=== PATIENT | female | born 1990 | race Caucasian/White ===

== ENCOUNTER 2016-07-13 20:07 | Inpatient (IN) | payer BC ==
[~2016-07-13] VITALS: Ht 160 cm; Wt 66.9 kg
[~2016-07-13 20:07] MED LIST: BIRTH CONTROL PO
[2016-07-13 20:17] VITALS: BP 125/73
[2016-07-13] MEDS ORDERED: NS IV 1000 ML 1,000 ML IV ONE (20:30)
[2016-07-13] MEDS ORDERED: CATHETER FLUSH 10 ML SYR IV PRN (20:30)
[2016-07-13] MEDS ORDERED: MINERAL OIL CONCENTRATE 99.9% 15 ML UDC TOP PRN (20:30)
[2016-07-13] MEDS ORDERED: MISOPROSTOL 100 MCG (CYTOTEC) TAB PO ONE (20:30)
[2016-07-13 21:13] LABS: BASOPHILS % (AUTO) 0 % (0-10); EOSINOPHILS # (AUTO) 0.2 10^3/uL (0.0-0.3); EOSINOPHILS % (AUTO) 2 % (0-10); LYMPHOCYTES % (AUTO) 18 % (12-44); MEAN CORPUSCULAR HEMOGLOBIN 33 PG (25-34); MEAN CORPUSCULAR HGB CONC 35 G/DL (32-36); MEAN CORPUSCULAR VOLUME 94 FL (80-99); MEAN PLATELET VOLUME 11.2 FL (7.4-10.4); MONOCYTES # (AUTO) 0.9 X 10^3 (0.0-1.0); MONOCYTES % (AUTO) 8 % (0-12); NEUTROPHILS # (AUTO) 8.1 X 10^3 (1.8-7.8); NEUTROPHILS % (AUTO) 72 % (42-75); PLATELET COUNT 184 10^3/uL (130-400); RED BLOOD COUNT 3.56 10^6/uL (4.35-5.85); RED CELL DISTRIBUTION WIDTH 12.5 % (10.0-14.5); WHITE BLOOD COUNT 11.3 10^3/uL (4.3-11.0)
[2016-07-13 21:18] LABS: BILIRUBIN,URINE NEGATIVE (NEGATIVE); KETONES,URINE NEGATIVE (NEGATIVE); LEUKOCYTE ESTERASE ,URINE 3+ (NEGATIVE); NITRITE,URINE NEGATIVE (NEGATIVE); PH,URINE 7 (5-9); PROTEIN,URINE NEGATIVE (NEGATIVE); UROBILINOGEN,URINE NORMAL (NORMAL)
[2016-07-13 21:28] LABS: WBC,URINE 25-50 /HPF
[2016-07-13] MEDS ORDERED: PREN-37 PO (21:29)
[2016-07-13] MEDS ORDERED: FERR-84 PO (21:30)
[2016-07-13] MEDS: D5 LR IV SOLUTION 1,000 ML IV SCH (21:49)
[2016-07-14] VITALS (74 sets, daily range): BP systolic 96–142; BP diastolic 51–95
[2016-07-14] MEDS ORDERED: MISOPROSTOL 100 MCG (CYTOTEC) TAB PO SCH (00:30)
[2016-07-14] MEDS: D5 LR IV SOLUTION 1,000 ML IV SCH ×2 (05:26→13:23)
[2016-07-14] MEDS ORDERED: OXYTOCIN/NORMAL SALINE 500 ML IV SCH ×2 (05:52→19:20)
--- NOTE | 2016-07-14 08:36 | Progress Note-Standard ---
Standard Progress Note Progress Notes/Assess & Plan Progress/Assessment & Plan Patient had one dose of oral cytotec. She was then started on Pitocin at 0630. Doing well but requsting some pain medication or epidural. VS - Last 72 Hours, by Label 07/13/16 07/14/16 07/14/16 20:17 01:28 05:20 Temp 98.8 98.0 97.6 Pulse 62 57 55 Resp 18 18 18 B/P (MAP) 125/73 130/60 116/56 Laboratory Tests Test 07/13/16 20:40 Range/Units White Blood Count 11.3 H 4.3-11.0 10^3/uL Red Blood Count 3.56 L 4.35-5.85 10^6/uL Hemoglobin 11.8 11.5-16.0 G/DL Hematocrit 34 L 35-52 % Mean Corpuscular Volume 94 80-99 FL Mean Corpuscular Hemoglobin 33 25-34 PG Mean Corpuscular Hemoglobin Concent 35 32-36 G/DL Red Cell Distribution Width 12.5 10.0-14.5 % Platelet Count 184 130-400 10^3/uL Mean Platelet Volume 11.2 H 7.4-10.4 FL Neutrophils (%) (Auto) 72 42-75 % Lymphocytes (%) (Auto) 18 12-44 % Monocytes (%) (Auto) 8 0-12 % Eosinophils (%) (Auto) 2 0-10 % Basophils (%) (Auto) 0 0-10 % Neutrophils # (Auto) 8.1 H 1.8-7.8 X 10^3 Lymphocytes # (Auto) 2.0 1.0-4.0 X 10^3 Monocytes # (Auto) 0.9 0.0-1.0 X 10^3 Eosinophils # (Auto) 0.2 0.0-0.3 10^3/uL Basophils # (Auto) 0.0 0.0-0.1 10^3/uL Urine Color YELLOW Urine Clarity CLEAR Urine pH 7 5-9 Urine Specific [place] 1.010 L 1.016-1.022 Urine Protein NEGATIVE NEGATIVE Urine Glucose (UA) NEGATIVE NEGATIVE Urine Ketones NEGATIVE NEGATIVE Urine Nitrite NEGATIVE NEGATIVE Urine Bilirubin NEGATIVE NEGATIVE Urine Urobilinogen NORMAL NORMAL MG/DL Urine Leukocyte Esterase 3+ H NEGATIVE Urine RBC (Auto) 4+ H NEGATIVE Urine RBC 5-10 H /HPF Urine WBC 25-50 H /HPF Urine Squamous Epithelial Cells 5-10 /HPF Urine Crystals NONE /LPF Urine Bacteria FEW H /HPF Urine Casts NONE /LPF Urine Mucus NEGATIVE /LPF Urine Culture Indicated YES well being reassuring SVE 4/100/-2 AROM clear fluid Assessment: IUP at 40 2/7 weeks. AROM. Augmentation. Plan ERNST VORA DO July 14, 2016 08:36
[2016-07-14] MEDS ORDERED: SUFENTA 0.6MCG/ML BUPIVA 0.125 100 ML ONE (08:39)
[2016-07-14] MEDS ORDERED: fentaNYL INJECTION 100 MCG/2 ML AMP IVP PRN (08:45)
[2016-07-14] MEDS ORDERED: BUPIVACAINE 0.25% 30 ML (SENSORCAINE) VIAL ONE ×2 (08:53→18:19)
[2016-07-14] MEDS ORDERED: fentaNYL INJECTION 100 MCG/2 ML AMP ONE ×3 (08:53→18:52)
[2016-07-14] MEDS ORDERED: LIDOCAINE PF 2% 10 ML (XYLOCAINE) AMP ONE ×3 (08:53→19:06)
[2016-07-14] MEDS ORDERED: LACTATED RINGERS 1,000 ML IV ONE ×2 (09:42)
[2016-07-14] MEDS ORDERED: EPIDURAL (SUFENTA 0.6MCG/ML BUPIVA 0.125%) 100 ML BAG EPI PRN (09:45)
[2016-07-14] MEDS ORDERED: fentaNYL INJECTION 100 MCG/2 ML AMP INJ ONE (09:45)
[2016-07-14] MEDS ORDERED: NALOXONE 0.4 MG/ML 1 ML (NARCAN) VIAL IV PRN (09:45)
[2016-07-14] MEDS ORDERED: ONDANSETRON 4 MG/2 ML (SDV) Z0FRAN IV PRN (09:45)
[2016-07-14] MEDS ORDERED: LIDOCAINE/EPI 1%-1:200,000 (XYLOCAINE) 30 ML VIAL ONE (11:29)
[2016-07-14] MEDS ORDERED: TERBUTALINE INJ 1 MG/ML (BRETHINE) AMP ONE (17:58)
[2016-07-14] MEDS ORDERED: ceFAZolin 2 GM/50 ML NS 50 ML IV ONE (18:00)
[2016-07-14] MEDS ORDERED: CATHETER FLUSH 10 ML SYR IV PRN (18:00)
[2016-07-14] MEDS ORDERED: FAMOTIDINE 20MG/2ML IV (PEPCID) IV ONE (18:00)
[2016-07-14] MEDS ORDERED: METOCLOPRAMIDE INJ 10 MG/2 ML (REGLAN) IV ONE (18:00)
[2016-07-14] MEDS ORDERED: CITRIC ACID/SOB CIT (BICITRA) 30 ML UDC PO ONE (18:00)
[2016-07-14] MEDS ORDERED: ceFAZolin 1,000 MG (ANCEF) VIAL ONE (18:07)
[2016-07-14] MEDS ORDERED: NS (IVPB) 50 ML ONE (18:07)
--- NOTE | 2016-07-14 18:13 | History & Physical-OB ---
OB - Chief Complaint & HPI Date Date of Admission: Date of Admission: July 13, 2016 at 8:07 pm Chief Complaint/History OB-Reason for Admission/Chief: Induction of Labor Hx : 1 Hx Para: 0 Expected Date of Delivery: July 12, 2016 Gestational Age in Weeks: 40 Indication for induction: post dates Other reason for admission: This patient is a 26-year-old she is 40 weeks and 2 days gestation and a patient of my partner Dr. Friedman's who was admitted last evening for induction of labor due to postdates. She was given oral Cytotec overnight and started on Pitocin for augmentation this morning. AROM was performed and Pitocin was continued throughout the day. The patient progressed to approximately 8-8-1/2 cm, 80 percent effaced, 0 station however, the head never fully engaged into the pelvis. I took over on this patient due to my partner having to leave town. When I took over care for this patient she was noted to be 8 cm approximately 3 o'clock this afternoon. Admission Nurse Assessment Rev: Yes History of Labs O neg Antibody neg RI RPR NR HBsAg NR HIV NR GC neg GBS neg Allergies and Home Medications Allergies Coded Allergies: No Known Drug Allergies (Unverified , 09/21/11) Home Medications Ferrous Sulfate 325 Mg Tablet, 325 MG PO DAILY, (Reported) Vit/Iron Fumarate/FA 1 Each Tablet, 1 EACH PO DAILY, (Reported) OB - History Hx of Present Care: Yes Ultrasounds: Normal mid trimester US Obstetrical Complications: None Medical Complications: None Delivery History Hx Blood Disorders: No Adverse Rxn to Tranfusion: No Patient Past Medical History hyperhydrosis Social History/Family History HIV/AIDS: No Recent Infectious Disease Expo: No Sexually Transmitted Disease: No Alcohol Use: Denies Use Recreational Drug Use: No Immunizations Hepatitis A: No Hepatitis B: No OB - Admission Exam Physical Exam Vitals: Vital Signs 07/14/16 07/14/16 07/14/16 09:24 13:54 15:54 Temp 100.1 Pulse 61 Resp 18 B/P (MAP) 122/63 Pulse Ox 100 HEENT: NCAT Heart: Rhythm Normal Lungs: Clear Abdomen: Gravid Extremities: Normal Cervical Dilatation: 1cm Effacement: 75% Station: -1 Membranes: Intact Amniotic Fluid: Clear Heart Rate: 130's Accelerations: Accelerations Present Decelerations: Variable Decelerations Short Term Variability: Present Swing Driver Variability: Average (6-25) Contractions on Admission: >10 Minutes Apart Intensity: Mild Labs Laboratory Tests Test 07/13/16 20:40 Range/Units White Blood Count 11.3 H 4.3-11.0 10^3/uL Red Blood Count 3.56 L 4.35-5.85 10^6/uL Hemoglobin 11.8 11.5-16.0 G/DL Hematocrit 34 L 35-52 % Mean Corpuscular Volume 94 80-99 FL Mean Corpuscular Hemoglobin 33 25-34 PG Mean Corpuscular Hemoglobin Concent 35 32-36 G/DL Red Cell Distribution Width 12.5 10.0-14.5 % Platelet Count 184 130-400 10^3/uL Mean Platelet Volume 11.2 H 7.4-10.4 FL Neutrophils (%) (Auto) 72 42-75 % Lymphocytes (%) (Auto) 18 12-44 % Monocytes (%) (Auto) 8 0-12 % Eosinophils (%) (Auto) 2 0-10 % Basophils (%) (Auto) 0 0-10 % Neutrophils # (Auto) 8.1 H 1.8-7.8 X 10^3 Lymphocytes # (Auto) 2.0 1.0-4.0 X 10^3 Monocytes # (Auto) 0.9 0.0-1.0 X 10^3 Eosinophils # (Auto) 0.2 0.0-0.3 10^3/uL Basophils # (Auto) 0.0 0.0-0.1 10^3/uL Urine Color YELLOW Urine Clarity CLEAR Urine pH 7 5-9 Urine Specific [place] 1.010 L 1.016-1.022 Urine Protein NEGATIVE NEGATIVE Urine Glucose (UA) NEGATIVE NEGATIVE Urine Ketones NEGATIVE NEGATIVE Urine Nitrite NEGATIVE NEGATIVE Urine Bilirubin NEGATIVE NEGATIVE Urine Urobilinogen NORMAL NORMAL MG/DL Urine Leukocyte Esterase 3+ H NEGATIVE Urine RBC (Auto) 4+ H NEGATIVE Urine RBC 5-10 H /HPF Urine WBC 25-50 H /HPF Urine Squamous Epithelial Cells 5-10 /HPF Urine Crystals NONE /LPF Urine Bacteria FEW H /HPF Urine Casts NONE /LPF Urine Mucus NEGATIVE /LPF Urine Culture Indicated YES OB - Assessment/Plan/Diagnosis Assessment Assessment: induction of labor Plan Plan: Section Other Plan Due to failure to progress since 3 o'clock this afternoon she has made no change from 8 cm and no signs of head engaged in the pelvis. Pitocin was at 26, and an adequate contraction pattern was achieved. Fetus continues to tolerate contraction pattern, however, without any signs of change towards the end of first stage of labor I discussed the patient proceeding with delivery for underlying suspected cephalopelvic disproportion and failure to descend. Risk of was discussed with the patient detail with her present including risk of bleeding, infection, damaging surrounding structures including but not limited to the uterus, bowel, bladder, and any other organs in the pelvis including the fetus. Risk for bleeding, and need for blood transfusion was discussed. Possible need for hysterectomy was even discussed as a life saving procedure. after all of her questions were answered with her present consent was obtained and the patient is taken to the operating room where we will proceed with primary . Discharge Diagnosis Diagnosis: 26 yo @ 40.2 weeks gestation Failure to progress GBS neg KVNG PEREZ DO July 14, 2016 6:13 pm
[2016-07-14] MEDS ORDERED: ceFAZolin INJECTION 1,000 MG in NS (IVPB) 50 ML IV ONE (18:15)
[2016-07-14] MEDS ORDERED: OXYTOCIN/NORMAL SALINE 1,000 ML IV ONE (18:19)
[2016-07-14] MEDS ORDERED: TERBUTALINE INJ 1 MG/ML (BRETHINE) AMP SC ONE (19:00)
[2016-07-14] MEDS ORDERED: METHYLERGONOVINE 0.2 MG/ML (METHERGINE) AMP ONE (19:05)
[2016-07-14] MEDS ORDERED: KETOROLAC 30 MG/ML VIAL ONE (19:14)
--- NOTE | 2016-07-14 19:20 | Progress Note-Post Operative ---
Post-Operative Progess Note Surgeon (s)/Loom Doffer (s) Surgeon KVNG PEREZ DO Loom Doffer: Gamal MS3 Pre-Operative Diagnosis Failure to progress/decend Post-Operative Diagnosis same Procedure & Operative Findings Date of Procedure 07/14/16 Procedure Preformed/Findings PLTCS Live female Anesthesia Type Epidural Estimated Blood Loss Estimated blood loss (mL): 600 Specimens/Packing Specimens Removed placenta Packing: none KVNG PEREZ DO July 14, 2016 7:20 pm
--- NOTE | 2016-07-14 19:23 | Discharge Inst-Women's Service ---
Discharge Inst-Women's Serv Depart Medication/Instructions New, Converted or Re-Newed RX: RX on Chart Consults/Follow Up Additional Follow Up: Yes Activity Activity: Activity as Tolerated Driving Instructions: No Driving for 1 Week NO SMOKING: NO SMOKING Nothing Inside Vagina: No Douching, No Carroll, No Tampons Diet Discharge Diet: No Restrictions Symptoms to Report to : Bleeding Excessive, Pain Increased, Fever Over 101 Degrees F, Vaginal Bleeding Increase, Questions/Concerns For Any Problems or Questions: Contact Your Physician Skin/Wound Care Infection Signs and Symptoms: Increased Redness, Foul Odor of Wound, Increased Drainage, Skin Itchy or Has a Rash, Increased Swelling, Temperature Above 101 F Operative Area Clean and Dry: Keep Incision Clean/Dry Stitches/Shirley/Dermabond: Dermabond, Care of Stitches Bathing Instructions: KVNG Maciel DO July 14, 2016 19:23
[2016-07-14] MEDS ORDERED: IBUP-1773 PO (19:25)
[2016-07-14] MEDS ORDERED: DOCU100C37 PO (19:25)
[2016-07-14] MEDS ORDERED: HYDR-3812 PO (19:25)
[2016-07-14] MEDS ORDERED: TETANUS,DIPTH,PERTUSS P/F (BOOSTRIX) 0.5 ML VIAL IM SCH (19:30)
[2016-07-14] MEDS ORDERED: ONDANSETRON 4 MG/2 ML (SDV) Z0FRAN IVP PRN (19:30)
[2016-07-14] MEDS ORDERED: HYDROmorphone (DILAUDID) 2 MG/ML VIAL IVP PRN (19:30)
[2016-07-14] MEDS ORDERED: MEASLES,MUMPS,RUBELLA 1 EA INJ SC SCH (19:30)
[2016-07-14] MEDS: KETOROLAC 30 MG/ML VIAL IVP SCH (20:07)
[2016-07-14] MEDS: DOCUSATE SODIUM 100 MG (COLACE) CAP PO SCH (21:59)
[2016-07-14] MEDS: CATHETER FLUSH 10 ML SYR IV SCH (22:00)
[2016-07-14] MEDS: HYDROcodone/APAP 5 MG/325 MG (LORTAB) TAB PO PRN (22:43)
[2016-07-15] MEDS: KETOROLAC 30 MG/ML VIAL IVP SCH ×3 (01:34→13:10)
[2016-07-15 03:51] VITALS: BP 99/57
[2016-07-15] MEDS: HYDROcodone/APAP 5 MG/325 MG (LORTAB) TAB PO PRN ×4 (05:16→20:49)
[2016-07-15 05:53] LABS: BASOPHILS % (AUTO) 0 % (0-10); EOSINOPHILS # (AUTO) 0.1 10^3/uL (0.0-0.3); EOSINOPHILS % (AUTO) 1 % (0-10); LYMPHOCYTES # (AUTO) 1.7 X 10^3 (1.0-4.0); LYMPHOCYTES % (AUTO) 12 % (12-44); MEAN CORPUSCULAR HEMOGLOBIN 33 PG (25-34); MEAN CORPUSCULAR HGB CONC 34 G/DL (32-36); MEAN CORPUSCULAR VOLUME 96 FL (80-99); MEAN PLATELET VOLUME 11.4 FL (7.4-10.4); MONOCYTES # (AUTO) 1.3 X 10^3 (0.0-1.0); MONOCYTES % (AUTO) 9 % (0-12); NEUTROPHILS # (AUTO) 11.3 X 10^3 (1.8-7.8); NEUTROPHILS % (AUTO) 79 % (42-75); PLATELET COUNT 144 10^3/uL (130-400); RED BLOOD COUNT 3.04 10^6/uL (4.35-5.85); RED CELL DISTRIBUTION WIDTH 12.5 % (10.0-14.5); WHITE BLOOD COUNT 14.4 10^3/uL (4.3-11.0)
[2016-07-15] MEDS: CATHETER FLUSH 10 ML SYR IV SCH (07:00)
[2016-07-15 09:30] VITALS: BP 100/60
[2016-07-15] MEDS: DOCUSATE SODIUM 100 MG (COLACE) CAP PO SCH ×2 (09:58→20:45)
--- NOTE | 2016-07-15 11:07 | OPERATIVE REPORT ---
DATE OF SERVICE: PREOPERATIVE DIAGNOSES: 1. A 26-year-old G1, P0 at 40 weeks and 2 days gestation. 2. Failure to progress, failure to descend. POSTOPERATIVE DIAGNOSES: 1. A 26-year-old G1, P0 at 40 weeks and 2 days gestation. 2. Failure to progress, failure to descend. 3. Nuchal cord x1. PROCEDURE: Primary low transverse section. SURGEON: Dr. Arnoldo Perez ANESTHESIA: Spinal. ESTIMATED BLOOD LOSS: 600 cc URINE OUTPUT: 100 cc, clear at the end of the procedure. FLUIDS: 1000 mL Lactated Ringer solution. FINDINGS: Alive female infant, weighing 7 pounds 15 ounces, Apgars of 8 and 9. Grossly normal appearing uterus, bilateral fallopian tubes and ovaries. SPECIMENS SENT: Placenta. INDICATIONS FOR PROCEDURE: This 26-year-old female was a patient who sought care with my partner, Dr. Friedman. She was admitted last evening for induction of labor due to postdates and Cytotec was given as the initial induction method. Please see my preoperative H and P for complete details pertaining to patient's admission presentation, course of labor and indications for , as well as discussion of risks. OPERATIVE REPORT IN DETAIL: Once in the operating room, epidural analgesia was bolused and found to be adequate. She was placed in the supine position with a leftward tilt, prepped and draped in normal sterile fashion. Timeout was performed and anesthesia is tested. A Pfannenstiel skin incision was then made with a knife and carried down to the underlying fascia using Bovie cautery. The fascial incision is extended laterally using Bovie cautery. The superior aspect of the fascial incision was then grasped with Shonda clamps, tented upward and dissected off the underlying rectus muscles. The inferior aspect of the fascial incision was then grasped with Shonda clamps, tented upward and dissected of the underlying rectus muscles. The rectus muscle was then dissected down the midline using Vilchis scissors which exposed the peritoneum, which was entered bluntly and extended laterally and superiorly using the Metzenbaum scissors. Care was taken to avoid the bowel and bladder. I then placed the Pasha ring retractor in the peritoneal incision, which offered excellent lateral sidewall retraction. I made an incision through the vesicouterine peritoneum of the lower uterine segment and bluntly dissect this off of the lower uterine segment. I proceeded with making my myotomy until membranes were visualized. At which point, I extended the uterine incision with lateral traction. Rupture of membranes was performed at that time. The was found in the vertex presentation. With gentle fundal pressure, the infant's head was elevated up to the incision where it was bulb suctioned, both nares and oropharynx. A nuchal cord was reduced x1 and the anterior and posterior shoulders were delivered. The infant was then brought out into the operative field were the cord was doubly clamped and cut and the was handed off to the awaiting pediatric nurses in attendance. Cord blood was collected. Three-vessel cord with intact placenta was delivered spontaneously thereafter. IV Pitocin was then initiated to facilitate uterine contraction. The uterine fundus became firmer with bimanual massage. The uterus was then exteriorized and cleared of all endometrial clots and debris. I then closed the uterine incision using 0 Vicryl suture in a running locked fashion. A 2nd layer of imbricating 0 Monocryl was placed. Excellent hemostasis was noted after doing so. There was still quite a bit bogginess and atony noted of the uterine fundus, at which point I have anesthesia give 0.2 mg of Methergine IM, which resolves this while I am irrigating. I placed the uterus back within the pelvis and copiously irrigated the pelvis using normal saline. There was no active bleeding noted from any of my dissection planes. I then placed Interceed anti-adhesive over my left transverse incision and proceeded with closing the peritoneum using 3-0 Vicryl suture in a running fashion. The rectus muscles were reapproximated using 3-0 Vicryl suture in interrupted fashion. The fascia was reapproximated using 0 Vicryl suture in a running fashion. The subcutaneous tissue was reapproximated using 3-0 plain in an interrupted subcutaneous stitch and the skin was reapproximated using 4-0 Monocryl in a running subcuticular. Dermabond was applied to the incision. The sterile dressing is adhesive white tape. The patient tolerated the procedure well and sent to recovery in stable condition. Lap and sponge were correct at the end of the procedure. Instrument counts were correct as well. One gram of Ancef was given preoperatively for infection prophylaxis. Job ID: [id number] DocumentID: [id number] Dictated Date: 07/14/2016 19:16:59 Dental Laboratory Technician Apprentice Date: 07/15/2016 11:07:09 Dictated By: ARNOLDO PEREZ DO
--- NOTE | 2016-07-15 11:13 | Postpartum Progress Note ---
Post Op Post-operative Day #1 Subjective: Patient is without complaints. Ambulating, voiding after cagle removed. Tolerating a regular diet without nausea or vomiting. Normal lochia. Pain is well controlled with oral pain medications. Passing flatus. Breast feeding. Objective: VS - Last 72 Hours, by Label 07/13/16 07/14/16 07/14/16 07/14/16 20:17 01:28 05:20 07:02 Temp 98.8 98.0 97.6 Pulse 62 57 55 54 Resp 18 18 18 18 B/P (MAP) 125/73 130/60 116/56 116/71 07/14/16 07/14/16 07/14/16 07/14/16 07:18 07:33 07:48 08:03 Temp 97.7 Pulse 56 61 59 90 Resp 18 18 18 18 B/P (MAP) 124/58 106/63 109/73 124/59 07/14/16 07/14/16 07/14/16 07/14/16 08:17 08:30 08:46 09:01 Pulse 60 74 82 73 Resp 18 22 24 24 B/P (MAP) 115/72 136/80 142/95 135/63 07/14/16 07/14/16 07/14/16 07/14/16 09:04 09:13 09:16 09:17 Pulse 76 70 62 74 Resp 24 24 24 24 B/P (MAP) 130/58 129/60 136/60 136/63 Pulse Ox 100 100 100 100 07/14/16 07/14/16 07/14/16 07/14/16 09:18 09:19 09:21 09:23 Pulse 65 76 68 69 Resp 24 24 24 24 B/P (MAP) 120/58 129/60 124/58 130/59 Pulse Ox 100 100 100 100 16/15 07//16/17 07/14/16 09:24 09:25 09:26 09:30 Pulse 66 69 65 60 Resp 24 24 24 20 B/P (MAP) 115/53 122/57 128/58 123/58 Pulse Ox 100 /16/15 07//07/14/16 09:34 09:37 09:40 09:43 Pulse 57 53 52 60 Resp 20 20 20 20 B/P (MAP) 124/80 127/57 124/58 132/60 5/16/17 5/16/17 5/16/17 5/16/17 09:46 09:49 09:52 09:55 Temp 98.7 Pulse 50 49 55 51 Resp 20 20 20 18 B/P (MAP) 126/58 116/56 116/65 109/55 5/16/17 5/16/17 5/16/17 5/16/17 10:00 10:07 10:13 10:18 Pulse 51 55 65 63 Resp 18 18 18 18 B/P (MAP) 98/57 101/58 106/54 123/58 5/16/17 5/16/17 5/16/17 5/16/17 10:21 10:26 10:30 10:45 Pulse 51 67 61 59 Resp 18 18 18 18 B/P (MAP) 106/60 96/51 123/75 118/64 5/16/17 5/16/17 5/16/17 5/16/17 11:01 11:17 11:30 11:48 Temp 99.7 Pulse 54 67 64 65 Resp 18 18 18 18 B/P (MAP) 128/57 115/68 116/67 125/80 5/16/17 5/16/17 5/16/17 5/16/17 12:01 12:16 12:40 12:45 Pulse 73 71 80 63 Resp 18 18 18 18 B/P (MAP) 123/71 120/70 123/58 119/57 5/16/17 5/16/17 5/16/17 5/16/17 12:50 12:55 13:00 13:05 Pulse 67 68 81 66 Resp 18 18 18 18 B/P (MAP) 128/60 133/65 112/65 105/58 5/16/17 5/16/17 5/16/17 5/16/17 13:22 13:39 13:54 14:08 Temp 100.1 Pulse 67 65 78 57 Resp 18 18 18 18 B/P (MAP) 113/59 118/64 111/62 123/70 5/16/17 5/16/17 5/16/17 5/16/17 14:24 14:39 14:54 15:08 Pulse 57 71 74 84 Resp 18 18 18 18 B/P (MAP) 123/70 130/76 121/69 117/66 16/17 07/14/17 17 07/14/16 15:23 15:39 15:54 16:08 Temp 100.0 Pulse 67 60 61 65 Resp 18 18 18 18 B/P (MAP) 125/71 118/69 122/63 120/67 07/14/16 07/14/16 07/14/16 07/14/16 16:24 16:39 16:54 17:08 Pulse 56 76 64 63 Resp 18 18 18 18 B/P (MAP) 114/66 120/63 122/72 121/70 07/14/16 07/14/16 07/14/16 07/14/16 17:24 17:39 17:53 18:08 Temp 100.6 Pulse 73 67 67 68 Resp 18 18 18 18 B/P (MAP) 129/92 106/55 115/61 115/55 07/14/16 07/14/16 07/14/16 07/15/16 18:20 21:10 23:00 03:51 Temp 99.9 100.1 98.5 Pulse 90 70 65 71 Resp 18 18 20 20 B/P (MAP) 119/59 117/71 118/69 99/57 Pulse Ox 97 97 97 Physical Exam: General - Alert and oriented, no apparent distress Abdomen - Soft, appropriately tender to palpation, non-distended, fundus firm at umbilicus Incision - clean, dry and intact; no erythema or induration, no drainage Extremities - no edema, negative Katey's bilaterally Laboratory Tests Test 07/15/16 05:17 Range/Units White Blood Count 14.4 H 4.3-11.0 10^3/uL Red Blood Count 3.04 L 4.35-5.85 10^6/uL Hemoglobin 9.9 L 11.5-16.0 G/DL Hematocrit 29 L 35-52 % Mean Corpuscular Volume 96 80-99 FL Mean Corpuscular Hemoglobin 33 25-34 PG Mean Corpuscular Hemoglobin Concent 34 32-36 G/DL Red Cell Distribution Width 12.5 10.0-14.5 % Platelet Count 144 130-400 10^3/uL Mean Platelet Volume 11.4 H 7.4-10.4 FL Neutrophils (%) (Auto) 79 H 42-75 % Lymphocytes (%) (Auto) 12 12-44 % Monocytes (%) (Auto) 9 0-12 % Eosinophils (%) (Auto) 1 0-10 % Basophils (%) (Auto) 0 0-10 % Neutrophils # (Auto) 11.3 H 1.8-7.8 X 10^3 Lymphocytes # (Auto) 1.7 1.0-4.0 X 10^3 Monocytes # (Auto) 1.3 H 0.0-1.0 X 10^3 Eosinophils # (Auto) 0.1 0.0-0.3 10^3/uL Basophils # (Auto) 0.0 0.0-0.1 10^3/uL Assessment: 26 y/o post-operative day # 1, status post PLTCS. Recovering well, hemodynamically stable Acute blood loss anemia Hgb 9.9 Rh neg, Rh pos Plan: Routine post-operative care. Needs RhoGAM prior to discharge. Encourage breast feeding. VTE prophylaxis: SCDs, ambulation. Ferrous sulfate supplementation. Plan for discharge POD#2-3. Vitals - Labs Vital Signs - I&O Vital Signs Date Time Temp Pulse Resp B/P (MAP) Pulse Ox O2 Delivery O2 Flow Rate FiO2 07/15/16 03:51 98.5 71 20 99/57 97 07/14/16 23:00 100.1 65 20 118/69 97 07/14/16 21:10 99.9 70 18 117/71 97 07/14/16 18:20 90 18 119/59 07/14/16 18:08 68 18 115/55 07/14/16 17:53 67 18 115/61 07/14/16 17:39 100.6 67 18 106/55 07/14/16 17:24 73 18 129/92 07/14/16 17:08 63 18 121/70 07/14/16 16:54 64 18 122/72 07/14/16 16:39 76 18 120/63 07/14/16 16:24 56 18 114/66 07/14/16 16:08 100.0 65 18 120/67 07/14/16 15:54 61 18 122/63 07/14/16 15:39 60 18 118/69 07/14/16 15:23 67 18 125/71 07/14/16 15:08 84 18 117/66 07/14/16 14:54 74 18 121/69 07/14/16 14:39 71 18 130/76 07/14/16 14:24 57 18 123/70 07/14/16 14:08 57 18 123/70 07/14/16 13:54 100.1 78 18 111/62 07/14/16 13:39 65 18 118/64 07/14/16 13:22 67 18 113/59 07/14/16 13:05 66 18 105/58 07/14/16 13:00 81 18 112/65 07/14/16 12:55 68 18 133/65 07/14/16 12:50 67 18 128/60 07/14/16 12:45 63 18 119/57 07/14/16 12:40 80 18 123/58 07/14/16 12:16 71 18 120/70 07/14/16 12:01 73 18 123/71 07/14/16 11:48 65 18 125/80 07/14/16 11:30 99.7 64 18 116/67 07/14/16 11:17 67 18 115/68 I & O 07/15/16 07:00 Intake Total 4375 ml Output Total 1300 ml Balance 3075 ml Labs Laboratory Tests 07/15/16 05:17: White Blood Count 14.4H, Red Blood Count 3.04L, Hemoglobin 9.9L, Hematocrit 29L , Mean Corpuscular Volume 96, Mean Corpuscular Hemoglobin 33, Mean Corpuscular Hemoglobin Concent 34, Red Cell Distribution Width 12.5, Platelet Count 144, Mean Platelet Volume 11.4H, Neutrophils (%) (Auto) 79H, Lymphocytes (%) (Auto) 12, Monocytes (%) (Auto) 9, Eosinophils (%) (Auto) 1, Basophils (%) (Auto) 0, Neutrophils # (Auto) 11.3H, Lymphocytes # (Auto) 1.7, Monocytes # (Auto) 1.3H, Eosinophils # (Auto) 0.1, Basophils # (Auto) 0.0 Microbiology 07/13/16 Urine Culture - Final, Complete Presumptive Rosario Albicans JANA VIZCAINO MD July 15, 2016 11:13
--- NOTE | 2016-07-15 12:37 | Anesthesia-Regional Post-Op ---
Regional Patient Condition Mental Status: Alert, Oriented x3 Circulation: Same as Pre-Op Headache: Absent Sensation: Full Recovery Motor Block: Absent Post Op Complications Complications None Follow Up Care/Instructions Patient Instructions None needed. Anesthesia/Patient Condition Patient is doing well, no complaints, stable vital signs, no apparent adverse anesthesia problems. No complications reported per nursing. GUS CINTRON CRNA July 15, 2016 12:37
[2016-07-15] MEDS: SIMETHICONE 80 MG (MYLICON) CHEW PO PRN ×2 (15:48→18:14)
[2016-07-15 15:50] VITALS: BP 104/66
[2016-07-15 17:55] VITALS: BP 105/69
[2016-07-15 20:30] VITALS: BP 116/73
[2016-07-15] MEDS: IBUPROFEN 600 MG (MOTRIN) TAB PO SCH (20:44)
[2016-07-16 02:30] VITALS: BP 103/62
[2016-07-16] MEDS: IBUPROFEN 600 MG (MOTRIN) TAB PO SCH ×4 (02:32→16:24)
[2016-07-16] MEDS: HYDROcodone/APAP 5 MG/325 MG (LORTAB) TAB PO PRN (05:00)
[2016-07-16] MEDS: SIMETHICONE 80 MG (MYLICON) CHEW PO PRN ×2 (05:01→09:28)
--- NOTE | 2016-07-16 08:19 | Postpartum Progress Note ---
Post Op Post-operative Day #2 s/p PLTCS She is doing well Subjective: Patient is without complaints. Ambulating, voiding after cagle removed. Tolerating a regular diet without nausea or vomiting. Normal lochia. Pain is well controlled with oral pain medications. Passing flatus. breast feeding. Objective: Vital Sign - Last 24 Hours 07/15/16 07/15/16 07/15/16 07/15/16 09:30 15:50 17:55 20:30 Temp 97.0 98.2 97.8 98.7 Pulse 70 69 79 74 Resp 20 18 18 18 B/P (MAP) 100/60 104/66 105/69 116/73 Pulse Ox 98 98 98 98 07/16/16 02:30 Temp 96.9 Pulse 60 Resp 18 B/P (MAP) 103/62 Pulse Ox 98 Intake and Output 07/15/16 07/15/16 07/16/16 15:00 23:00 07:00 Intake Total 2100 ml Output Total 1970 ml Balance 130 ml Physical Exam: General - Alert and oriented, no apparent distress Abdomen - Soft, appropriately tender to palpation, non-distended, fundus firm at umbilicus Incision - clean, dry and intact; no erythema or induration, no drainage Extremities - no edema, negative Katey's bilaterally Assessment: 1. post-operative day # 2, status post PLTCS. Recovering well, hemodynamically stable 2. Acute blood loss anemia - iron replaced 3. Rh -, baby Rh +, rhogam to be given Plan: Routine post-operative care. Encourage breast feeding. Encourage ambulation. VTE prophylaxis: SCDs. Ferrous sulfate supplementation. Rhogam Plan for discharge today Vitals - Labs Vital Signs - I&O Vital Signs Date Time Temp Pulse Resp B/P (MAP) Pulse Ox O2 Delivery O2 Flow Rate FiO2 07/16/16 02:30 96.9 60 18 103/62 98 07/15/16 20:30 98.7 74 18 116/73 98 07/15/16 17:55 97.8 79 18 105/69 98 07/15/16 15:50 98.2 69 18 104/66 98 07/15/16 09:30 97.0 70 20 100/60 98 I & O 07/16/16 07:00 Intake Total 2100 ml Output Total 1970 ml Balance 130 ml Labs Microbiology 07/13/16 Urine Culture - Final, Complete Presumptive Rosario Albicans ERNST HA DO July 16, 2016 08:19
[2016-07-16] MEDS: DOCUSATE SODIUM 100 MG (COLACE) CAP PO SCH (09:10)
[2016-07-16 09:45] VITALS: BP 109/73
[2016-07-16] MEDS ORDERED: SIME180C4 PO (13:32)
[2016-07-16 15:00] VITALS: BP 105/62
== END 2016-07-16 17:25 | disposition home or self-care (01) | DRG 765 ==
LOC: LDRP 20:07
PROVIDERS: ADMIT Obstetrics & Gynecology; ATTEND Obstetrics & Gynecology
PROC: 3E0P05Z Introduction of Adhesion Barrier into Female Reproductive, Open Approach (ICD-10-PCS; 2016-07-14)
PROC: 10D00Z1 Extraction of Products of Conception, Low, Open Approach (ICD-10-PCS; principal; 2016-07-14 18:24)
DX: O48.0 Post-term pregnancy (principal); O99.03 Anemia complicating the puerperium; D62 Acute posthemorrhagic anemia; O66.40 Failed trial of labor, unspecified; O69.81X0 Labor and delivery complicated by cord around neck, without compression, not applicable or unspecified; O34.593 Maternal care for other abnormalities of gravid uterus, third trimester; N85.8 Other specified noninflammatory disorders of uterus; Z41.8 Encounter for other procedures for purposes other than remedying health state; Z3A.40 40 weeks gestation of pregnancy; Z37.0 Single live birth
CPT/HCPCS: 36415; 81000; 83033; 85025; 86850; 86900; 86901; 87088